=== PATIENT | female | born 1995 | race Two or more races ===

== ENCOUNTER 2018-07-07 11:40 | Emergency (ER) | payer OTHER ==
[2018-07-07 12:00] VITALS: BMI 17.8
[2018-07-07] MEDS ORDERED: ONDANSETRON 4 MG/2 ML VIAL IVPB ONE (12:16)
[2018-07-07] MEDS ORDERED: SODIUM CHLORIDE 1,000 ML IV STA ×2 (12:16→13:38)
[2018-07-07] MEDS ORDERED: ACETAMINOPHEN 1000 MG/100 ML VIAL (NON FORMULARY) IVPB ONE (12:17)
[2018-07-07] MEDS ORDERED: ONDANSETRON 4 MG/2 ML VIAL ONE (12:20)
[2018-07-07] MEDS ORDERED: ACETAMINOPHEN INJECTION 100 ML IVPB ONE (12:20)
--- NOTE | 2018-07-07 13:37 | PDOC ---
History of Present Illness - General Chief Complaint: Respiratory Stated Complaint: FEVER,COUGH,COLD AND CONGESTION Time Seen by Provider: 07/07/18 11:59 - History of Present Illness Initial Comments: 07/07/18 13:31 Chief complaint: Fever and cough History of present illness: 3 day history of fever to 103, nonproductive cough , nasal congestion, body aches, fatigue, malaise. No flu shot. Review of systems: Denies chest pain, shortness of breath, abdominal pain, visual or focal neurologic symptoms, unsteadiness of gait. Admits nausea and several episodes of vomiting, without hematemesis, admits several soft stools a day without blood or melena. Menses are regular, last period is now. Denies the possibility of . No urinary tract symptoms including dysuria frequency urgency or hematuria. Remainder systems reviewed and negative Past medical history: Denies past medical or surgical problems, takes no medication Social history: Stable home and family, no drugs alcohol or tobacco, fully ambulatory without disability Family history: Reviewed and noncontributory Physical exam: Alert and oriented well-developed well-nourished no acute distress cheerful and cooperative. No tachypnea or dyspnea. No coughing no Afebrile, vital signs normal HEENT clear except for mild nasal congestion without discharge Neck supple without bruit mass or nodes Chest clear with full breath sounds throughout bilaterally. No wheezes rales or rhonchi. No chest wall tenderness or deformity CV S1 and S2 normal without murmur rub or gallop pulses full and symmetric no JVD or edema no bruits Abdomen nondistended, bowel sounds normal. Soft without mass tenderness organomegaly. No CVAT Extremities no CCE Skin clear, no rash, adequate turgor and wet mucous membranes Neurological intact Impression: Viral syndrome, probably influenza. No respiratory distress. Previously healthy female. Lungs are clear and there is no tachypnea or dyspnea , suspect that the cough is secondary to upper respiratory symptoms Plan: IV fluids, antiemetic, oral fluid challenge. Tylenol. Symptomatic treatment and follow-up primary physician Past History - Past Medical History Allergies/Adverse Reactions: Allergies Allergy/AdvReac Type Severity Reaction Status Date / Time No Known Allergies Allergy Verified 07/07/18 11:46 Home Medications: Ambulatory Orders NK [No Known Home Medication] 07/07/18 COPD: No - Suicide/Smoking/Psychosocial Hx Smoking History: Never smoked Hx Alcohol Use: No Drug/Substance Use Hx: No *Physical Exam - Vital Signs Last Vital Signs Temp Pulse Resp BP Pulse Ox 99.4 F 78 18 89/52 L 99 07/07/18 11:41 07/07/18 13:17 07/07/18 13:17 07/07/18 13:17 07/07/18 13:17 ED Treatment Course - Medications Given in the ED: ED Medications Discontinued Medications Generic Name Dose Route Start Last Admin Trade Name Claude PRN Reason Stop Dose Admin Acetaminophen 1,000 mg 07/07/18 12:17 07/07/18 12:34 Ofirmev Injection - IVPB 07/07/18 12:18 1,000 mg ONCE ONE Administration Sodium Chloride 1,000 mls @ 1,000 mls/hr 07/07/18 12:16 07/07/18 12:33 Normal Saline - IV 07/07/18 13:15 1,000 mls/hr ASDIR STA Administration Ondansetron HCl 4 mg 07/07/18 12:16 07/07/18 12:33 Zofran Injection IVPB 07/07/18 12:17 4 mg ONCE ONE Administration *DC/Admit/Observation/Transfer Diagnosis at time of Disposition: Viral syndrome - Discharge Dispostion Disposition: HOME Condition at time of disposition: Improved Decision to Admit order: No - Referrals Referrals: Merry Alford [Primary Care Provider] - 2 Days - Patient Instructions Printed Discharge Instructions: DI for Viral Syndrome Additional Instructions: Rest, Fluids, Tylenol or Motrin. Recheck primary doctor 24-48 hrs - Post Discharge Activity
[2018-07-07 14:54] LABS: EPITHELIAL CELLS MANY /hpf; URINE MUCUS 2+
[2018-07-07 15:16] VITALS: BP 100/57; PULSE 81
[2018-07-07 15:17] VITALS: TEMP 98.9
== END 2018-07-07 15:31 | disposition home or self-care (01) ==
LOC: FER 11:40
PROC: 3E033NZ Introduction of Analgesics, Hypnotics, Sedatives into Peripheral Vein, Percutaneous Approach (ICD-10-PCS; principal; 2018-07-07)
PROC: 3E033GC Introduction of Other Therapeutic Substance into Peripheral Vein, Percutaneous Approach (ICD-10-PCS; 2018-07-07)
PROC: 3E0337Z Introduction of Electrolytic and Water Balance Substance into Peripheral Vein, Percutaneous Approach (ICD-10-PCS; 2018-07-07)
DX: B34.9 Viral infection, unspecified (principal)
CPT/HCPCS: 81003; 81015; 84703; 94640; 96374; 96375; 99284-25; J0131; J7030

== ENCOUNTER 2021-09-03 13:55 | Emergency (ER) | payer OTHER ==
[2021-09-03] MEDS ORDERED: ACETAMINOPHEN 325 MG TABLET (FP) PO ONE (13:59)
[2021-09-03] MEDS ORDERED: IBUPROFEN 400 MG TABLET (FP) PO ONE ×2 (14:01→14:03)
[2021-09-03] MEDS ORDERED: ACETAMINOPHEN 325 MG TABLET (FP) ONE (14:04)
[2021-09-03 14:08] VITALS: BMI 19.3
[2021-09-03] MEDS ORDERED: ONDANSETRON 4 MG/2 ML VIAL IVPUSH ONE (14:33)
[2021-09-03] MEDS ORDERED: ONDANSETRON *ODT* 4 MG TABLET ONE (14:36)
[2021-09-03] MEDS ORDERED: ONDANSETRON *ODT* 4 MG TABLET SL ONE (14:36)
[2021-09-03 15:29] VITALS: BP 94/52; PULSE 100; TEMP 100
== END 2021-09-03 15:46 | disposition home or self-care (01) ==
LOC: FER 13:55
DX: U07.1 COVID-19 (principal); R50.9 Fever, unspecified
CPT/HCPCS: 0241U-QW; 99284-25; Q0162

== ENCOUNTER 2022-02-02 13:22 | Emergency (ER) | payer OTHER ==
[2022-02-02 13:27] VITALS: BP 100/62; PULSE 84; RESP 18; TEMP 98.8; BMI 19.6
[2022-02-02] MEDS ORDERED: IBUPROFEN 600 MG TABLET (FP) PO ONE ×2 (13:54→13:56)
== END 2022-02-02 14:23 | disposition home or self-care (01) ==
LOC: FER 13:22
DX: B34.9 Viral infection, unspecified (principal)
CPT/HCPCS: 0241U-QW; 99283-25